=== PATIENT | male | born 1995 | race Caucasian/White ===

== ENCOUNTER 2019-10-21 22:08 | Emergency (ER) | payer OTHER ==
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
== END 2019-10-22 00:57 | disposition home or self-care (01) ==
LOC: MW.ED 22:08
DX: T67.5XXA Heat exhaustion, unspecified, initial encounter (principal); B34.9 Viral infection, unspecified; Z20.828 Contact with and (suspected) exposure to other viral communicable diseases
CPT/HCPCS: 87081; 87880-QW; 93005; 99282; 99285-25; U0002

== ENCOUNTER 2021-08-10 20:44 | Emergency (ER) | payer SELFPAY ==
[2021-08-10] MEDS ORDERED: Ibuprofen 600 MG Tab PO ONE (21:57)
[2021-08-10 23:07] LABS: CORONAVIRUS COVID-19 NAA NEGATIVE (NEGATIVE); INFLUENZA A NAA NEGATIVE (NEGATIVE); INFLUENZA B NAA NEGATIVE (NEGATIVE); RESPIRATORY SYNCYTIAL VIR NAA NEGATIVE (NEGATIVE)
== END 2021-08-11 00:18 | disposition home or self-care (01) ==
LOC: MW.ED 20:44
DX: B34.9 Viral infection, unspecified (principal); Z20.822 Contact with and (suspected) exposure to COVID-19
CPT/HCPCS: 0241U; 87651; 99283; A9270

== ENCOUNTER 2022-12-23 12:49 | Emergency (ER) | payer SELFPAY | END 2022-12-23 15:00 | disposition home or self-care (01) | LOC: MW.ED 12:49 | DX: M79.601 Pain in right arm (principal) | CPT/HCPCS: 99283 ==

== ENCOUNTER 2023-08-07 18:57 | Inpatient (IN) | payer SELFPAY ==
[2023-08-07 19:53] LABS: HEMATOCRIT 44.3 % (42.0-52.0); HEMOGLOBIN 16.3 g/dL (14.0-18.0); MEAN CORPUSCULAR HEMOGLOBIN 29.8 pg (28.0-32.0); MEAN CORPUSCULAR HGB CONC 36.8 g/dL (32.0-36.0); MEAN PLATELET VOLUME 10.8 fL (9.4-12.4); PLATELET COUNT,PLT 241 K/uL (150-400); RED BLOOD CELL COUNT 5.47 M/uL (4.52-5.90); WHITE BLOOD CELL COUNT,WBC 16.97 K/uL (3.9-11.3)
[2023-08-07] MEDS: Piperacillin/Tazobactam 4.5 GM in Sodium Chloride 0.9% 100 ML IV ONE (20:09)
[2023-08-07] MEDS: Sodium Chloride 0.9% 1,000 ML IV ONE (20:10)
[2023-08-07] MEDS: Ondansetron 4 MG/2 ML SDV IVPUSH ONE (20:10)
[2023-08-07] MEDS: Ketorolac 30 MG/ML SDV IVPUSH ONE (20:10)
[2023-08-07] MEDS: Sodium Chloride 0.9% 10 ML Syringe FLUSH PRN (20:14)
[2023-08-07] MEDS: Sodium Chloride 0.9% 2.5 ML Syringe FLUSH PRN (20:14)
[2023-08-07 20:27] LABS: ALBUMIN 3.9 g/dL (3.4-5.0); BILIRUBIN TOTAL 1.5 mg/dL (0.2-1.0); CALCIUM 8.8 mg/dL (8.5-10.1); CARBON DIOXIDE,CO2 21.8 mmol/L (21.0-32.0); CREATININE 1.3 mg/dL (0.8-1.3); EST CRCL DRUG DOSING (CG) 78.39 mL/min; LACTIC ACID 0.9 mmol/L (0.4-2.0); POTASSIUM,K 3.7 mmol/L (3.5-5.1); PROTEIN TOTAL,TP 7.8 g/dL (6.4-8.2)
[2023-08-07] MEDS: Iopamidol 755 MG/ML 500 ML Multipack Bottle IVPUSH ONE (20:53)
[2023-08-07 21:16] LABS: LYMPHOCYTES ABSOLUTE MAN 2.04 K/uL (1.00-4.80); LYMPHOCYTES PERCENT MAN 12 % (24-44); MONOCYTES ABSOLUTE MAN 1.53 K/uL (0.00-0.80); MONOCYTES PERCENT MAN 9 % (0-8); SEG NEUTROPHILS ABSOLUTE MAN 13.41 K/uL (1.80-7.70); SEG NEUTROPHILS PERCENT MAN 79 % (41-71)
[2023-08-07] MEDS: Famotidine 20 MG/2 ML SDV IVPUSH ONE (22:13)
[2023-08-07 23:30] LABS: APPEARANCE,URINE CLEAR; BILIRUBIN,URINE NEGATIVE (NEGATIVE); COLOR,URINE YELLOW; GLUCOSE,URINE NEGATIVE (NEGATIVE); KETONES,URINE 15 mg/dL (NEGATIVE); LEUKOCYTE ESTERASE,URINE NEGATIVE (NEGATIVE); NITRITE,URINE NEGATIVE (NEGATIVE); OCCULT BLOOD,URINE MODERATE (NEGATIVE); PH,URINE 6.5 (5.0-8.0); PROTEIN,URINE TRACE mg/dL (NEGATIVE)
[2023-08-07 23:42] LABS: EPITHELIAL CELLS,URINE RARE (NONE-FEW); WBC,URINE 0-1 (0-5/HPF)
[2023-08-07 23:43] LABS: BACTERIA,URINE NOT SEEN (NEGATIVE)
[2023-08-07] MEDS: Morphine 2 MG/ML SYRINGE IVPUSH ONE (23:50)
[2023-08-08] MEDS ORDERED: Naloxone 0.4 MG/ML SDV IVPUSH PRN (00:40)
[2023-08-08] MEDS ORDERED: Ondansetron 4 MG/2 ML SDV IVPUSH PRN (00:42)
[2023-08-08] MEDS: Piperacillin/Tazobactam 4.5 GM in Sodium Chloride 0.9% 100 ML IV SCH (01:17)
[2023-08-08] MEDS: Sodium Chloride 0.9% 1,000 ML IV SCH (01:17)
[2023-08-08] MEDS: Morphine 2 MG/ML SYRINGE IVPUSH PRN (01:18)
[2023-08-08] MEDS ORDERED: Piperacillin/Tazobactam 3.375 GM in Sodium Chloride 0.9% 100 ML IV SCH (02:00)
[2023-08-08 06:53] LABS: BASOPHILS ABSOLUTE AUTO 0.05 K/uL (0.00-0.20); BASOPHILS PERCENT AUTO 0.4 % (0.0-1.0); EOSINOPHILS ABSOLUTE AUTO 0.03 K/uL (0.00-0.45); EOSINOPHILS PERCENT AUTO 0.2 % (0.0-6.0); HEMATOCRIT 41.7 % (42.0-52.0); HEMOGLOBIN 15.1 g/dL (14.0-18.0); IMMATURE GRAN ABSOLUTE AUTO 0.05 K/uL (0.00-0.05); IMMATURE GRAN PERCENT AUTO 0.4 % (0.0-0.4); LYMPHOCYTES ABSOLUTE AUTO 1.78 K/uL (1.00-4.80); LYMPHOCYTES PERCENT AUTO 12.8 % (24.0-44.0); MEAN CORPUSCULAR HEMOGLOBIN 30.1 pg (28.0-32.0); MEAN CORPUSCULAR HGB CONC 36.2 g/dL (32.0-36.0); MEAN CORPUSCULAR VOLUME 83.2 fL (83.0-99.0); MONOCYTES ABSOLUTE AUTO 1.47 K/uL (0.00-0.80); MONOCYTES PERCENT AUTO 10.5 % (0.0-8.0); NEUTROPHILS ABSOLUTE AUTO 10.57 K/uL (1.80-7.70); NEUTROPHILS PERCENT AUTO 75.7 % (41.0-71.0); PLATELET COUNT,PLT 179 K/uL (150-400); RED BLOOD CELL COUNT 5.01 M/uL (4.52-5.90); WHITE BLOOD CELL COUNT,WBC 13.95 K/uL (3.9-11.3)
[2023-08-08 07:10] LABS: CALCIUM 8.3 mg/dL (8.5-10.1); CARBON DIOXIDE,CO2 25.4 mmol/L (21.0-32.0); CREATININE 1.2 mg/dL (0.8-1.3); EST CRCL DRUG DOSING (CG) 84.92 mL/min; POTASSIUM,K 3.8 mmol/L (3.5-5.1)
[2023-08-08] MEDS ORDERED: Polyethylene Glycol 3350 Powder 17 GM Packet PO PRN (08:19)
[2023-08-08] MEDS ORDERED: Acetaminophen 325 MG Tab PO PRN (08:19)
[2023-08-08] MEDS ORDERED: Sodium Chloride 0.9% 1,000 ML IV SCH (08:30)
[2023-08-08] MEDS: Enoxaparin 40 MG/0.4 ML Syringe SUBCUT SCH (09:11)
[2023-08-08] MEDS: HYDROmorphone 0.5 MG/0.5 ML Syringe IVPUSH PRN (11:44)
[2023-08-08] MEDS: Acetaminophen 325 MG Tab PO PRN (20:37)
[2023-08-09 06:21] LABS: BASOPHILS ABSOLUTE AUTO 0.04 K/uL (0.00-0.20); BASOPHILS PERCENT AUTO 0.4 % (0.0-1.0); EOSINOPHILS ABSOLUTE AUTO 0.09 K/uL (0.00-0.45); EOSINOPHILS PERCENT AUTO 0.9 % (0.0-6.0); HEMATOCRIT 41.6 % (42.0-52.0); HEMOGLOBIN 14.6 g/dL (14.0-18.0); IMMATURE GRAN ABSOLUTE AUTO 0.03 K/uL (0.00-0.05); IMMATURE GRAN PERCENT AUTO 0.3 % (0.0-0.4); LYMPHOCYTES ABSOLUTE AUTO 1.78 K/uL (1.00-4.80); LYMPHOCYTES PERCENT AUTO 18.3 % (24.0-44.0); MEAN CORPUSCULAR HEMOGLOBIN 29.6 pg (28.0-32.0); MEAN CORPUSCULAR HGB CONC 35.1 g/dL (32.0-36.0); MEAN CORPUSCULAR VOLUME 84.4 fL (83.0-99.0); MEAN PLATELET VOLUME 10.7 fL (9.4-12.4); MONOCYTES ABSOLUTE AUTO 1.01 K/uL (0.00-0.80); MONOCYTES PERCENT AUTO 10.4 % (0.0-8.0); NEUTROPHILS PERCENT AUTO 69.7 % (41.0-71.0); PLATELET COUNT,PLT 202 K/uL (150-400); RED BLOOD CELL COUNT 4.93 M/uL (4.52-5.90); WHITE BLOOD CELL COUNT,WBC 9.75 K/uL (3.9-11.3)
[2023-08-09 06:45] LABS: A/G RATIO 0.7 (0.9-1.6); ALBUMIN 2.8 g/dL (3.4-5.0); BILIRUBIN TOTAL 1.2 mg/dL (0.2-1.0); CALCIUM 8.1 mg/dL (8.5-10.1); CARBON DIOXIDE,CO2 21.7 mmol/L (21.0-32.0); CREATININE 1.1 mg/dL (0.8-1.3); EST CRCL DRUG DOSING (CG) 92.64 mL/min; POTASSIUM,K 4.2 mmol/L (3.5-5.1); PROTEIN TOTAL,TP 6.6 g/dL (6.4-8.2)
[2023-08-09] MEDS: Ketorolac 30 MG/ML SDV IVPUSH PRN (07:53)
[2023-08-09] MEDS: Pantoprazole 40 MG in Sodium Chloride 0.9% 10 ML IVPUSH SCH (10:23)
[2023-08-09] MEDS ORDERED: oxyCODONE 5 MG Tab PO PRN (10:43)
[2023-08-09] MEDS: Acetaminophen 325 MG Tab PO SCH (11:48)
[2023-08-09] MEDS: Ketorolac 10 MG Tab PO SCH (13:36)
[2023-08-10 05:58] LABS: BASOPHILS ABSOLUTE AUTO 0.04 K/uL (0.00-0.20); BASOPHILS PERCENT AUTO 0.6 % (0.0-1.0); EOSINOPHILS ABSOLUTE AUTO 0.18 K/uL (0.00-0.45); EOSINOPHILS PERCENT AUTO 2.6 % (0.0-6.0); HEMOGLOBIN 14.8 g/dL (14.0-18.0); IMMATURE GRAN ABSOLUTE AUTO 0.02 K/uL (0.00-0.05); IMMATURE GRAN PERCENT AUTO 0.3 % (0.0-0.4); LYMPHOCYTES ABSOLUTE AUTO 1.46 K/uL (1.00-4.80); LYMPHOCYTES PERCENT AUTO 20.9 % (24.0-44.0); MEAN CORPUSCULAR HEMOGLOBIN 30.2 pg (28.0-32.0); MEAN CORPUSCULAR HGB CONC 36.1 g/dL (32.0-36.0); MEAN CORPUSCULAR VOLUME 83.7 fL (83.0-99.0); MEAN PLATELET VOLUME 10.8 fL (9.4-12.4); MONOCYTES ABSOLUTE AUTO 0.67 K/uL (0.00-0.80); MONOCYTES PERCENT AUTO 9.6 % (0.0-8.0); PLATELET COUNT,PLT 209 K/uL (150-400); WHITE BLOOD CELL COUNT,WBC 6.97 K/uL (3.9-11.3)
[2023-08-10 06:37] LABS: A/G RATIO 0.7 (0.9-1.6); ALBUMIN 2.7 g/dL (3.4-5.0); BILIRUBIN TOTAL 0.9 mg/dL (0.2-1.0); CALCIUM 8.2 mg/dL (8.5-10.1); CARBON DIOXIDE,CO2 22.7 mmol/L (21.0-32.0); CREATININE 0.9 mg/dL (0.8-1.3); EST CRCL DRUG DOSING (CG) 113.23 mL/min; POTASSIUM,K 3.9 mmol/L (3.5-5.1); PROTEIN TOTAL,TP 6.7 g/dL (6.4-8.2)
== END 2023-08-10 14:00 | disposition home or self-care (01) | DRG 392 ==
LOC: MW.ED 18:57 → MW.MS 23:16
PROVIDERS: ADMIT Internal Medicine; ATTEND Internal Medicine
DX: K57.20 Diverticulitis of large intestine with perforation and abscess without bleeding (principal); H54.7 Unspecified visual loss; Z91.041 Radiographic dye allergy status; Z98.1 Arthrodesis status; Z86.16 Personal history of COVID-19
CPT/HCPCS: 36415; 74177; 74177-26; 80048; 80053; 81001; 82947; 83605; 83690; 84484; 85025; 87040; 93005; 93010; 96365; 96375; 99285-25; 99291; A9270-GY; C9113; J1170; J1885; J2270; J2405; J2543; J3490; J7030; Q9967

== ENCOUNTER 2024-01-20 19:39 | Emergency (ER) | payer SELFPAY ==
[2024-01-20] MEDS ORDERED: Sodium Chloride 0.9% 10 ML Syringe FLUSH PRN (19:42)
[2024-01-20 20:06] LABS: APPEARANCE,URINE CLEAR; BILIRUBIN,URINE NEGATIVE (NEGATIVE); COLOR,URINE YELLOW; GLUCOSE,URINE NEGATIVE (NEGATIVE); KETONES,URINE NEGATIVE (NEGATIVE); LEUKOCYTE ESTERASE,URINE NEGATIVE (NEGATIVE); NITRITE,URINE NEGATIVE (NEGATIVE); OCCULT BLOOD,URINE SMALL (NEGATIVE); PROTEIN,URINE NEGATIVE (NEGATIVE); UROBILINOGEN,URINE 0.2 EU/dL (<2.0)
[2024-01-20 20:16] LABS: BACTERIA,URINE RARE (NEGATIVE); EPITHELIAL CELLS,URINE FEW (NONE-FEW); RBC,URINE 0-2 (0-2/HPF)
[2024-01-20] MEDS: Sodium Chloride 0.9% 1,000 ML IV ONE (20:16)
[2024-01-20] MEDS: Ketorolac 30 MG/ML SDV IVPUSH ONE (20:25)
[2024-01-20 20:29] LABS: BASOPHILS ABSOLUTE AUTO 0.06 K/uL (0.00-0.20); BASOPHILS PERCENT AUTO 0.6 % (0.0-1.0); EOSINOPHILS ABSOLUTE AUTO 0.16 K/uL (0.00-0.45); EOSINOPHILS PERCENT AUTO 1.7 % (0.0-6.0); HEMOGLOBIN 15.5 g/dL (14.0-18.0); IMMATURE GRAN ABSOLUTE AUTO 0.01 K/uL (0.00-0.05); IMMATURE GRAN PERCENT AUTO 0.1 % (0.0-0.4); LYMPHOCYTES ABSOLUTE AUTO 2.66 K/uL (1.00-4.80); LYMPHOCYTES PERCENT AUTO 28.1 % (24.0-44.0); MEAN CORPUSCULAR HEMOGLOBIN 29.8 pg (28.0-32.0); MEAN CORPUSCULAR VOLUME 82.5 fL (83.0-99.0); MEAN PLATELET VOLUME 10.8 fL (9.4-12.4); MONOCYTES PERCENT AUTO 8.4 % (0.0-8.0); NEUTROPHILS ABSOLUTE AUTO 5.78 K/uL (1.80-7.70); NEUTROPHILS PERCENT AUTO 61.1 % (41.0-71.0); PLATELET COUNT,PLT 278 K/uL (150-400); RED BLOOD CELL COUNT 5.21 M/uL (4.52-5.90); WHITE BLOOD CELL COUNT,WBC 9.47 K/uL (3.9-11.3)
[2024-01-20 20:51] LABS: A/G RATIO 1.3 (0.9-1.6); BILIRUBIN TOTAL 0.5 mg/dL (0.2-1.0); CALCIUM 9.3 mg/dL (8.5-10.1); CARBON DIOXIDE,CO2 26.1 mmol/L (21.0-32.0); CREATININE 1.1 mg/dL (0.8-1.3); EST CRCL DRUG DOSING (CG) 88.61 mL/min; POTASSIUM,K 3.9 mmol/L (3.5-5.1); PROTEIN TOTAL,TP 7.1 g/dL (6.4-8.2)
== END 2024-01-20 22:41 | disposition home or self-care (01) ==
LOC: MW.ED 19:39
DX: R10.32 Left lower quadrant pain (principal); Z75.8 Other problems related to medical facilities and other health care
CPT/HCPCS: 36415; 74176; 80053; 81001; 83690; 85025; 96361; 96374; 99284; J1885; J7030

== ENCOUNTER 2024-01-27 08:31 | Day surgery (SDC) | payer SELFPAY ==
[2024-01-27] MEDS: Lactated Ringers 1,000 ML IV SCH (09:02)
[2024-01-27] MEDS ORDERED: Lidocaine 2% 5 ML SDV ONE (09:10)
[2024-01-27] MEDS ORDERED: Propofol 200 MG/20 ML SDV ONE ×2 (09:11)
[2024-01-27] MEDS ORDERED: Lactated Ringers 1,000 ML IV SCH (10:15)
== END 2024-01-27 10:55 | disposition home or self-care (01) ==
LOC: MW.SDS 08:31
PROVIDERS: ATTEND Surgery
DX: K57.30 Diverticulosis of large intestine without perforation or abscess without bleeding (principal); Z80.0 Family history of malignant neoplasm of digestive organs; K42.9 Umbilical hernia without obstruction or gangrene; K40.20 Bilateral inguinal hernia, without obstruction or gangrene, not specified as recurrent
CPT/HCPCS: 45378; J2704; J7120; J3490

== ENCOUNTER 2024-10-16 13:58 | Inpatient (IN) | payer SELFPAY ==
[2024-10-16] MEDS: Ketorolac 30 MG/ML SDV IVPUSH ONE (14:13)
[2024-10-16 14:21] LABS: BASOPHILS ABSOLUTE AUTO 0.06 K/uL (0.00-0.20); BASOPHILS PERCENT AUTO 0.3 % (0.0-1.0); EOSINOPHILS ABSOLUTE AUTO 0.04 K/uL (0.00-0.45); EOSINOPHILS PERCENT AUTO 0.2 % (0.0-6.0); IMMATURE GRAN ABSOLUTE AUTO 0.06 K/uL (0.00-0.05); IMMATURE GRAN PERCENT AUTO 0.3 % (0.0-0.4); LYMPHOCYTES ABSOLUTE AUTO 2.47 K/uL (1.00-4.80); LYMPHOCYTES PERCENT AUTO 14.3 % (24.0-44.0); MEAN PLATELET VOLUME 10.2 fL (9.4-12.4); MONOCYTES ABSOLUTE AUTO 1.36 K/uL (0.00-0.80); MONOCYTES PERCENT AUTO 7.9 % (0.0-8.0); NEUTROPHILS ABSOLUTE AUTO 13.32 K/uL (1.80-7.70); NEUTROPHILS PERCENT AUTO 77.0 % (41.0-71.0); NRBC ABSOLUTE 0.00 K/uL (0.00-0.02); NRBC PERCENT 0.0 /100WBC (0.0-0.2); PLATELET COUNT,PLT 295 K/uL (150-400); RED BLOOD CELL COUNT 5.96 M/uL (4.52-5.90); WHITE BLOOD CELL COUNT,WBC 17.31 K/uL (3.9-11.3)
[2024-10-16 14:50] LABS: A/G RATIO 1.1 (0.9-1.6); ALANINE AMINOTRANSFERASE,ALT 25.0 IU/L (14-63); ASPARTATE AMNIOTRANSFERASE,AST 11.0 IU/L (15-37); BILIRUBIN TOTAL 0.8 mg/dL (0.2-1.0); BLOOD UREA NITROGEN,BUN 12.0 mg/dL (7.0-18.0); CARBON DIOXIDE,CO2 22.5 mmol/L (21.0-32.0); CHLORIDE,CL 102.0 mmol/L (98-107); CREATININE 1.3 mg/dL (0.8-1.3); EST CRCL DRUG DOSING (CG) 74.3 mL/min; GLUCOSE RANDOM 107.0 mg/dL (74-106); POTASSIUM,K 3.8 mmol/L (3.5-5.1); PROTEIN TOTAL,TP 7.7 g/dL (6.4-8.2); SODIUM,NA 138.0 mmol/L (136-148)
[2024-10-16 15:01] LABS: ESTIMATED GFR 75.0 mL/min (>60)
[2024-10-16] MEDS: Ondansetron 4 MG/2 ML SDV IVPUSH ONE (15:02)
[2024-10-16 15:12] LABS: GLUCOSE,URINE NEGATIVE (NEGATIVE); OCCULT BLOOD,URINE MODERATE (NEGATIVE)
[2024-10-16 15:18] LABS: APPEARANCE,URINE HAZY
[2024-10-16 15:25] LABS: EPITHELIAL CELLS,URINE OCCASIONAL (NONE-FEW)
[2024-10-16] MEDS ORDERED: Ketorolac 30 MG/ML SDV IVPUSH PRN (16:30)
[2024-10-16] MEDS: metroNIDAZOLE/Normal Saline 500 MG in Premix Bag 1 BAG IV ONE (16:30)
[2024-10-16] MEDS ORDERED: Ondansetron 4 MG/2 ML SDV IVPUSH PRN (16:30)
[2024-10-16] MEDS ORDERED: Sodium Chloride 0.9% 10 ML Syringe FLUSH PRN (16:30)
[2024-10-16] MEDS ORDERED: Sodium Chloride 0.9% 2.5 ML Syringe FLUSH PRN (16:30)
[2024-10-16] MEDS: Ciprofloxacin in D5W 400 MG in Premix Bag 1 BAG IV SCH (16:31)
[2024-10-16] MEDS ORDERED: Naloxone 0.4 MG/ML SDV IVPUSH PRN (16:34)
[2024-10-16] MEDS ORDERED: Ciprofloxacin in D5W 400 MG in Premix Bag 1 BAG IV SCH (16:45)
[2024-10-16] MEDS: Pantoprazole 40 MG in Sodium Chloride 0.9% 10 ML IVPUSH SCH (17:45)
[2024-10-17] MEDS: metroNIDAZOLE/Normal Saline 500 MG in Premix Bag 1 BAG IV SCH (01:07)
[2024-10-17] MEDS: Ciprofloxacin in D5W 400 MG in Premix Bag 1 BAG IV SCH (03:50)
[2024-10-17 05:49] LABS: BASOPHILS ABSOLUTE AUTO 0.05 K/uL (0.00-0.20); BASOPHILS PERCENT AUTO 0.5 % (0.0-1.0); EOSINOPHILS ABSOLUTE AUTO 0.06 K/uL (0.00-0.45); EOSINOPHILS PERCENT AUTO 0.6 % (0.0-6.0); IMMATURE GRAN ABSOLUTE AUTO 0.02 K/uL (0.00-0.05); IMMATURE GRAN PERCENT AUTO 0.2 % (0.0-0.4); LYMPHOCYTES ABSOLUTE AUTO 1.96 K/uL (1.00-4.80); LYMPHOCYTES PERCENT AUTO 19.8 % (24.0-44.0); MEAN PLATELET VOLUME 10.5 fL (9.4-12.4); MONOCYTES ABSOLUTE AUTO 0.79 K/uL (0.00-0.80); MONOCYTES PERCENT AUTO 8.0 % (0.0-8.0); NEUTROPHILS ABSOLUTE AUTO 7.00 K/uL (1.80-7.70); NEUTROPHILS PERCENT AUTO 70.9 % (41.0-71.0); NRBC ABSOLUTE 0.00 K/uL (0.00-0.02); NRBC PERCENT 0.0 /100WBC (0.0-0.2); PLATELET COUNT,PLT 240 K/uL (150-400); RED BLOOD CELL COUNT 5.30 M/uL (4.52-5.90); WHITE BLOOD CELL COUNT,WBC 9.88 K/uL (3.9-11.3)
[2024-10-17 06:10] LABS: BLOOD UREA NITROGEN,BUN 8.0 mg/dL (7.0-18.0); CARBON DIOXIDE,CO2 24.4 mmol/L (21.0-32.0); CHLORIDE,CL 105.0 mmol/L (98-107); CREATININE 1.1 mg/dL (0.8-1.3); EST CRCL DRUG DOSING (CG) 87.81 mL/min; GLUCOSE RANDOM 98.0 mg/dL (74-106); POTASSIUM,K 4.0 mmol/L (3.5-5.1); SODIUM,NA 138.0 mmol/L (136-148)
[2024-10-17 06:13] LABS: ESTIMATED GFR 92.0 mL/min (>60)
[2024-10-18 05:42] LABS: BASOPHILS ABSOLUTE AUTO 0.05 K/uL (0.00-0.20); BASOPHILS PERCENT AUTO 0.5 % (0.0-1.0); EOSINOPHILS ABSOLUTE AUTO 0.08 K/uL (0.00-0.45); EOSINOPHILS PERCENT AUTO 0.8 % (0.0-6.0); IMMATURE GRAN ABSOLUTE AUTO 0.01 K/uL (0.00-0.05); IMMATURE GRAN PERCENT AUTO 0.1 % (0.0-0.4); LYMPHOCYTES ABSOLUTE AUTO 2.13 K/uL (1.00-4.80); LYMPHOCYTES PERCENT AUTO 22.6 % (24.0-44.0); MEAN PLATELET VOLUME 10.3 fL (9.4-12.4); MONOCYTES ABSOLUTE AUTO 0.79 K/uL (0.00-0.80); MONOCYTES PERCENT AUTO 8.4 % (0.0-8.0); NEUTROPHILS ABSOLUTE AUTO 6.36 K/uL (1.80-7.70); NEUTROPHILS PERCENT AUTO 67.6 % (41.0-71.0); NRBC ABSOLUTE 0.00 K/uL (0.00-0.02); NRBC PERCENT 0.0 /100WBC (0.0-0.2); PLATELET COUNT,PLT 242 K/uL (150-400); RED BLOOD CELL COUNT 5.42 M/uL (4.52-5.90); WHITE BLOOD CELL COUNT,WBC 9.42 K/uL (3.9-11.3)
[2024-10-18 06:02] LABS: BLOOD UREA NITROGEN,BUN 4.0 mg/dL (7.0-18.0); CARBON DIOXIDE,CO2 27.0 mmol/L (21.0-32.0); CHLORIDE,CL 107.0 mmol/L (98-107); CREATININE 1.1 mg/dL (0.8-1.3); EST CRCL DRUG DOSING (CG) 87.81 mL/min; GLUCOSE RANDOM 97.0 mg/dL (74-106); POTASSIUM,K 3.8 mmol/L (3.5-5.1); SODIUM,NA 141.0 mmol/L (136-148)
[2024-10-18 06:04] LABS: ESTIMATED GFR 92.0 mL/min (>60)
== END 2024-10-18 10:32 | disposition home or self-care (01) | DRG 392 ==
LOC: MW.ED 13:58 → MW.MS 16:01
PROVIDERS: ADMIT Internal Medicine; ATTEND Internal Medicine
DX: K57.32 Diverticulitis of large intestine without perforation or abscess without bleeding (principal); K80.20 Calculus of gallbladder without cholecystitis without obstruction; H54.7 Unspecified visual loss; K37 Unspecified appendicitis; Z87.81 Personal history of (healed) traumatic fracture; Z91.041 Radiographic dye allergy status; Z98.1 Arthrodesis status
CPT/HCPCS: 36415; 74176; 74176-26; 80048; 80053; 81001; 82947; 83690; 83735; 85025; 96361; 96374; 96375; 99285; 99285-25; A9270-GY; J0744; J1836; J1885; J2270; J2405; J2470; J7030

== ENCOUNTER 2024-12-13 14:04 | Emergency (ER) | payer SELFPAY ==
[2024-12-13] MEDS ORDERED: Sodium Chloride 0.9% 2.5 ML Syringe FLUSH PRN (14:05)
[2024-12-13] MEDS ORDERED: Sodium Chloride 0.9% 10 ML Syringe FLUSH PRN (14:05)
[2024-12-13 14:38] LABS: APPEARANCE,URINE CLEAR; GLUCOSE,URINE NEGATIVE (NEGATIVE); OCCULT BLOOD,URINE TRACE-INTACT (NEGATIVE)
[2024-12-13 14:49] LABS: EPITHELIAL CELLS,URINE NOT SEEN (NONE-FEW)
[2024-12-13 14:53] LABS: BASOPHILS ABSOLUTE AUTO 0.04 K/uL (0.00-0.20); BASOPHILS PERCENT AUTO 0.5 % (0.0-1.0); EOSINOPHILS ABSOLUTE AUTO 0.10 K/uL (0.00-0.45); EOSINOPHILS PERCENT AUTO 1.1 % (0.0-6.0); IMMATURE GRAN ABSOLUTE AUTO 0.02 K/uL (0.00-0.05); IMMATURE GRAN PERCENT AUTO 0.2 % (0.0-0.4); LYMPHOCYTES ABSOLUTE AUTO 2.04 K/uL (1.00-4.80); LYMPHOCYTES PERCENT AUTO 23.3 % (24.0-44.0); MEAN PLATELET VOLUME 10.2 fL (9.4-12.4); MONOCYTES ABSOLUTE AUTO 0.69 K/uL (0.00-0.80); MONOCYTES PERCENT AUTO 7.9 % (0.0-8.0); NEUTROPHILS ABSOLUTE AUTO 5.86 K/uL (1.80-7.70); NEUTROPHILS PERCENT AUTO 67.0 % (41.0-71.0); NRBC ABSOLUTE 0.00 K/uL (0.00-0.02); NRBC PERCENT 0.0 /100WBC (0.0-0.2); PLATELET COUNT,PLT 333 K/uL (150-400); RED BLOOD CELL COUNT 6.24 M/uL (4.52-5.90); WHITE BLOOD CELL COUNT,WBC 8.75 K/uL (3.9-11.3)
[2024-12-13 15:19] LABS: A/G RATIO 1.0 (0.9-1.6); ALANINE AMINOTRANSFERASE,ALT 59.0 IU/L (14-63); ASPARTATE AMNIOTRANSFERASE,AST 32.0 IU/L (15-37); BILIRUBIN TOTAL 0.5 mg/dL (0.2-1.0); BLOOD UREA NITROGEN,BUN 11.0 mg/dL (7.0-18.0); CARBON DIOXIDE,CO2 24.4 mmol/L (21.0-32.0); CHLORIDE,CL 104.0 mmol/L (98-107); CREATINE KINASE,CK 89.0 U/L (26-308); CREATININE 1.3 mg/dL (0.8-1.3); EST CRCL DRUG DOSING (CG) 74.3 mL/min; GLUCOSE RANDOM 97.0 mg/dL (74-106); POTASSIUM,K 4.0 mmol/L (3.5-5.1); PROTEIN TOTAL,TP 7.6 g/dL (6.4-8.2); SODIUM,NA 140.0 mmol/L (136-148)
[2024-12-13 15:20] LABS: ESTIMATED GFR 75.0 mL/min (>60)
[2024-12-13] MEDS: Ketorolac 30 MG/ML SDV IVPUSH ONE (15:50)
[2024-12-13] MEDS: methylPREDNISolone Sodium Succinate 125 MG/2 ML SDV IVPUSH ONE (17:40)
== END 2024-12-13 17:53 | disposition home or self-care (01) ==
LOC: MW.ED 14:04
DX: R10.9 Unspecified abdominal pain (principal); G89.29 Other chronic pain; R31.29 Other microscopic hematuria; D72.829 Elevated white blood cell count, unspecified; Z98.1 Arthrodesis status; Z91.041 Radiographic dye allergy status; Z79.899 Other long term (current) drug therapy
CPT/HCPCS: 36415; 74176; 80053; 80307; 81001; 82550; 83690; 85025; 96361; 96374; 96375; 99284; J1885; J2919; J7030; J8540

== ENCOUNTER 2024-12-25 01:03 | Emergency (ER) | payer SELFPAY ==
[2024-12-25] MEDS ORDERED: Sodium Chloride 0.9% 10 ML Syringe FLUSH PRN (01:05)
[2024-12-25] MEDS ORDERED: Sodium Chloride 0.9% 2.5 ML Syringe FLUSH PRN (01:05)
[2024-12-25 01:24] LABS: APPEARANCE,URINE CLEAR; GLUCOSE,URINE NEGATIVE (NEGATIVE); OCCULT BLOOD,URINE TRACE-INTACT (NEGATIVE)
[2024-12-25 01:31] LABS: EPITHELIAL CELLS,URINE RARE (NONE-FEW)
[2024-12-25 01:35] LABS: BASOPHILS ABSOLUTE AUTO 0.05 K/uL (0.00-0.20); BASOPHILS PERCENT AUTO 0.5 % (0.0-1.0); EOSINOPHILS ABSOLUTE AUTO 0.10 K/uL (0.00-0.45); EOSINOPHILS PERCENT AUTO 1.0 % (0.0-6.0); IMMATURE GRAN ABSOLUTE AUTO 0.02 K/uL (0.00-0.05); IMMATURE GRAN PERCENT AUTO 0.2 % (0.0-0.4); LYMPHOCYTES ABSOLUTE AUTO 3.90 K/uL (1.00-4.80); LYMPHOCYTES PERCENT AUTO 39.3 % (24.0-44.0); MEAN PLATELET VOLUME 10.2 fL (9.4-12.4); MONOCYTES ABSOLUTE AUTO 1.14 K/uL (0.00-0.80); MONOCYTES PERCENT AUTO 11.5 % (0.0-8.0); NEUTROPHILS ABSOLUTE AUTO 4.71 K/uL (1.80-7.70); NEUTROPHILS PERCENT AUTO 47.5 % (41.0-71.0); NRBC ABSOLUTE 0.00 K/uL (0.00-0.02); NRBC PERCENT 0.0 /100WBC (0.0-0.2); PLATELET COUNT,PLT 334 K/uL (150-400); RED BLOOD CELL COUNT 5.64 M/uL (4.52-5.90); WHITE BLOOD CELL COUNT,WBC 9.92 K/uL (3.9-11.3)
[2024-12-25] MEDS: Ondansetron 4 MG/2 ML SDV IVPUSH ONE (01:53)
[2024-12-25] MEDS: Hydrocortisone Sodium Succinate 100 MG/2 ML SDV IVPUSH ONE ×2 (02:04→05:58)
[2024-12-25 02:05] LABS: A/G RATIO 1.0 (0.9-1.6); ALANINE AMINOTRANSFERASE,ALT 44 IU/L (14-63); ASPARTATE AMNIOTRANSFERASE,AST 22 IU/L (15-37); BILIRUBIN TOTAL 0.5 mg/dL (0.2-1.0); BLOOD UREA NITROGEN,BUN 19 mg/dL (7.0-18.0); CARBON DIOXIDE,CO2 25.4 mmol/L (21.0-32.0); CHLORIDE,CL 106 mmol/L (98-107); CREATINE KINASE,CK 201 U/L (26-308); CREATININE 1.3 mg/dL (0.8-1.3); ESTIMATED GFR 75 mL/min (>60); GLUCOSE RANDOM 97 mg/dL (74-106); POTASSIUM,K 4.1 mmol/L (3.5-5.1); PROTEIN TOTAL,TP 7.0 g/dL (6.4-8.2); SODIUM,NA 141 mmol/L (136-148)
[2024-12-25] MEDS ORDERED: EPINEPHrine 1 MG/ML SDV IM PRN (05:42)
[2024-12-25] MEDS: diphenhydrAMINE 50 MG/ML SDV IVPUSH ONE (05:58)
[2024-12-25] MEDS: Iopamidol 755 MG/ML 500 ML Multipack Bottle IVPUSH ONE (07:18)
[2024-12-25] MEDS: Acetaminophen/oxyCODONE 325-10 MG Tab PO ONE (09:02)
[2024-12-25] MEDS: Ketorolac 30 MG/ML SDV IM ONE (09:06)
[2024-12-25] MEDS: Ketorolac 30 MG/ML SDV IVPUSH ONE (09:07)
== END 2024-12-25 09:55 | disposition home or self-care (01) ==
LOC: MW.ED 01:03
DX: R31.0 Gross hematuria (principal); R10.A3 Flank pain, bilateral; R97.20 Elevated prostate specific antigen [PSA]; Z91.041 Radiographic dye allergy status; Z79.899 Other long term (current) drug therapy
CPT/HCPCS: 36415; 71260; 72128; 74177; 80053; 81001; 82550; 83605; 83690; 85025; 85652; 86140; 96361; 96374; 96375; 96376; 99284; A9270; J1200; J1720; J1885; J2270; J2405; J7030; Q9967